=== PATIENT | female | born 1975 | race Caucasian/White ===

== ENCOUNTER 2016-09-26 18:30 | Emergency (ER) | payer SELFPAY ==
[~2016-09-26 18:30] MED LIST: HARD NAILS2.5 MG PO; MULTIPLE VITAMIN PO; PANTOPRAZOLE SO40 MG PO
--- NOTE | 2016-09-26 18:58 | ED CLINICAL REPORT ---
Clinical Report - Physicians/Mid Levels [facility] [address] [place] [address] 09/26/2016 18:29 Patient: TELMA CALL [facility]#: [id number] Time Seen: 18:43 Apr 2016. Arrived- By private vehicle. Historian- patient. HISTORY OF PRESENT ILLNESS Chief Complaint: (puncture wound from nail). This started just prior to arrival and is still present. It has been located on the right lower extremity (face). No rash to face. (Stepped on a nail just prior to arrival R. foot. Eleonora/ old nail through sandal. Mild pain to movement Non insulin dependent diabetic. No h/o mrsa. Incident occured just prior to arrival.). REVIEW OF SYSTEMS No fever, chills, difficulty breathing, lump in throat or abdominal pain. No diarrhea. All systems otherwise negative, except as recorded above. PAST HISTORY Tetanus immunization status is unknown. Problems: Laryngitis. Diabetes Mellitus. Cardiovascular Risk Factors. Hypertension. Pyelonephritis. UTI - Urinary Tract Infection. Obesity. Diarrhea. Abdominal Pain. Vomiting. Pharyngitis. URI. Bronchitis. Neck Pain. Tetanus Status. Fall. Sprain. Contusion. LNMP - Last Normal Menstrual Period. Diabetes Mellitus [RuleOut]. Additional Surgeries: Oophorectomy. Tubal Ligation. Medications: Vitamins. Allergies: Cipro. Percocet: "itch everywhere". SOCIAL HISTORY Former smoker. Alcohol use. No drug use. ADDITIONAL NOTES The nursing notes have been reviewed. PHYSICAL EXAM Appearance: Alert. CVS: Normal heart rate and rhythm. Heart sounds normal. Respiratory: No respiratory distress. Skin: Rash present on the right lower extremity (plantar mid foot wound, no fb, no surrounding erythema). LABS, X-RAYS, AND EKG Note - Tests: (xr foot: r. neg for fx or any acute abnormalities). PROGRESS AND PROCEDURES Course of Care: Patient took her on glucose here via her glucometer 140. No signs of immediate infection, given diabetic and plantar wound from a eleonora nail, will start with antibiotics. X-ray unremarkable for any signs of infectious process. No visible drainage from the area. Patient is stable. Patient/family counseled. Disposition: Discharged. Condition: good. CLINICAL IMPRESSION Puncture wound to the right foot. No puncture wound with foreign body present. INSTRUCTIONS Protect wound and keep wound area clean. Apply bacitracin twice daily. Warnings: TETANUS: You were given a tetanus shot during your visit. Make a note for future reference. Prescription Medications: Keflex 500 mg: take 1 capsule orally every 6 hours for 7 days. No refills. Substitution is permissible. Follow-up: Follow up with your doctor Saturday as needed and for wound check. Understanding of the discharge instructions verbalized by patient. (Electronically signed by Viki Yang P.A.-C 09/26/2016 19:02)
--- NOTE | 2016-09-26 18:58 | ED NURSING NOTES ---
Clinical Report - Nurses [facility] [address] [place] [address] 09/26/2016 18:29 Patient: TELMA CALL TRIAGE Triage time 1839 PM. Acuity: LEVEL 4. Chief Complaint: INJURY TO RIGHT ANKLE and FOOT. Alert. No acute distress. --18:45 Palak Rodríguez R.N. 18:37 09/26/16. BP: 157/83 taken on the left arm, via an automated monitor, while sitting. HR: 93. RR: 16. O2 saturation: 97% on room air. Temp: 98.1 F. Pain level now: 0/10. --18:45 Palak Rodríguez R.N. Weight: 115.6 kg stated. Height/Length: 63 inches Per Patient. BMI: 45.2. --18:38 Palak Rodríguez R.N. Medications Vitamins. --18:42 Palak Rodríguez R.N. Allergies Cipro. Percocet: "itch everywhere". --18:42 Palak Rodríguez R.N. Keflex. --19:05 Palak Rodríguez R.N. Medication/allergy information source: the patient. --18:45 Palak Rodríguez R.N. History Arrived by private vehicle. Historian: patient. Accompanied by family. Primary physician ([facility]). ( Pt states was walking in her barn when she stepped on a nail on her right foot, states the nail was "eleonora and old". Here for evaluation). Occurred at home. She has had trouble walking. No numbness, tingling, weakness, neck pain or back pain. Treatment SCRIPT SUPERVISOR: None. PAST MEDICAL HX: Tetanus status: unknown. Last normal menstrual period- August. Sexual history - sexually active. No contraception. SOCIAL HX: Former smoker, end date 2009. Occasional alcohol use; consumes beer occasionally. No drug use. No infectious disease exposure. ABUSE ASSESSMENT: No report of abuse. SELF HARM ASSESSMENT: A self harm assessment was performed. The patient answered "no" to the question "Do you have thoughts of harming or killing yourself?" and "Have you recently had thoughts about harming or killing others?". FALL RISK ASSESSMENT: Fall risk assessment completed. No fall risk identified. NUTRITIONAL RISK ASSESSMENT: The nutritional risk assessment revealed no deficiencies. FUNCTIONAL ASSESSMENT: Functional assessment: no impairments noted. LEARNING NEEDS ASSESSMENT: The learning needs assessment revealed no barriers. SKIN INTEGRITY ASSESSMENT: Skin integrity risk assessment completed. No skin integrity risk identified. --18:45 Palak Rodríguez R.N. PROBLEMS: Laryngitis. Diabetes Mellitus. Cardiovascular Risk Factors. Hypertension. Pyelonephritis. UTI - Urinary Tract Infection. Obesity. Abdominal Pain. Pharyngitis. URI. Bronchitis. Fall. Sprain. --18:43 Palak Rodríguez R.N. ADDITIONAL SURGERIES: Oophorectomy. Tubal Ligation. --18:43 Palak Rodríguez R.N. Interventions ID band on patient. --18:45 Palak Rodríguez R.N. PHYSICAL ASSESSMENT Ambulatory to room. GENERAL / NEURO / PSYCH: Oriented X 4. Alert. EXTREMITIES: Capillary refill is less than 2 seconds in the extremities. Extremity pulses are within normal limits. Extremities exhibit normal ROM. Right foot: tenderness and single puncture wound of the mid foot. No laceration or deformity. SKIN: Skin is warm and dry. Skin not intact. --18:47 Palak Rodríguez R.N. NURSING PROGRESS NOTES 19:09 09/26/2016 TDAP IM 0.5 mL given. (Lot#: [id number], expiration date: 03/27/2018, Auto Radiator Specialist: sanofi pasteur). Given in the right deltoid. Allergies verified and confirmed 5 rights. Vaccine information statement provided to the patient. --19:09 Palak Rodríguez R.N. 19:12 09/26/2016 Tetanus Immune Globulin IM 250 unit given. (Lot#: [id number], expiration date: 08/19/2017, Auto Radiator Specialist: sanofi pasteur). Given in the left deltoid. Allergies verified and confirmed 5 rights. Vaccine information statement provided to the patient. --19:12 Palak Rodríguez R.N. ( 1915: wound irrigation with Sodium Chloride, applied bacitracin, after dressing with bandaid). --19:22 Peri Lara 19:19 09/26/2016 Keflex (Cephalexin) PO Tablets 500 mg given. Allergies verified and confirmed 5 rights. --19:35 Palak Rodríguez R.N. <<STRICKEN ENTRY-- 19:24 09/26/2016 Zofran ODT (Ondansetron) PO Tablets 4 mg given. Allergies verified and confirmed 5 rights. --19:34 Palak Rodríguez R.N. --END STRIKE>> Other. --19:34 Palak Rodríguez R.N. <<STRICKEN ENTRY-- 19:33 09/26/2016 Keflex (Cephalexin) PO Tablets 500 mg given. Allergies verified and confirmed 5 rights. --19:34 Palak Rodríguez R.N. --END STRIKE>> Other. --19:35 Palak Rodríguez R.N. 19:34 09/26/2016 Zofran ODT (Ondansetron) PO Tablets 4 mg given. Allergies verified and confirmed 5 rights. --19:34 Palak Rodríguez R.N. 19:34 09/26/2016 Benadryl (DiphenhydrAMINE HCl) PO Capsules 25 mg given. Allergies verified, confirmed 5 rights and sedative warning given to the patient. --19:34 Palak Rodríguez R.N. DISPOSITION / DISCHARGE Departure time: 1938 PM. Condition at departure: stable. The goals identified in the patient's plan of care were met. No learning barriers present. Discharge instructions provided and reviewed with the patient. Reviewed warnings. Reviewed medication(s) side effects, precautions, dosing and course information. Prescription(s) given to the patient. Reviewed wound care instructions. Activity restrictions (minimal use of injured extremity) reviewed. Patient verbalized understanding. Written instructions provided in Kiswahili. No referrals given to the patient. The patient was discharged by the physician payroll and benefits assistant. She was discharged home and accompanied by spouse. She left the Emergency Department ambulatory and via private vehicle. Spouse driving. FALL RISK ASSESSMENT: Fall risk assessment completed. No fall risk identified. --19:38 Palak Rodríguez R.N. 19:25 09/26/16. BP: 147/54 (regular adult cuff) taken on the left arm, via an automated monitor, while sitting. HR: 78. RR: 14. O2 saturation: 100%. Temp: 98.3 F (oral). Pain level now: 07/20. --19:38 Palak Rodríguez R.N. Locked/Released at 09/26/2016 19:38 by Palak Rodríguez R.N.
--- NOTE | 2016-09-26 18:58 | ED NURSING NOTES ---
Clinical Report - Nurses [facility] [address] [place] [address] 09/26/2016 18:29 Patient: TELMA CALL TRIAGE Triage time 1839 PM. Acuity: LEVEL 4. Chief Complaint: INJURY TO RIGHT ANKLE and FOOT. Alert. No acute distress. --18:45 Palak Rodríguez R.N. 18:37 09/26/16. BP: 157/83 taken on the left arm, via an automated monitor, while sitting. HR: 93. RR: 16. O2 saturation: 97% on room air. Temp: 98.1 F. Pain level now: 0/10. --18:45 Palak Rodríguez R.N. Weight: 115.6 kg stated. Height/Length: 63 inches Per Patient. BMI: 45.2. --18:38 Palak Rodríguez R.N. Medications Vitamins. --18:42 Palak Rodríguez R.N. Allergies Cipro. Percocet: "itch everywhere". --18:42 Palak Rodríguez R.N. Keflex. --19:05 Palak Rodríguez R.N. Medication/allergy information source: the patient. --18:45 Palak Rodríguez R.N. History Arrived by private vehicle. Historian: patient. Accompanied by family. Primary physician ([facility]). ( Pt states was walking in her barn when she stepped on a nail on her right foot, states the nail was "eleonora and old". Here for evaluation). Occurred at home. She has had trouble walking. No numbness, tingling, weakness, neck pain or back pain. Treatment PRODUCT SUPPORT TECHNICIAN: None. PAST MEDICAL HX: Tetanus status: unknown. Last normal menstrual period- August. Sexual history - sexually active. No contraception. SOCIAL HX: Former smoker, end date 2009. Occasional alcohol use; consumes beer occasionally. No drug use. No infectious disease exposure. ABUSE ASSESSMENT: No report of abuse. SELF HARM ASSESSMENT: A self harm assessment was performed. The patient answered "no" to the question "Do you have thoughts of harming or killing yourself?" and "Have you recently had thoughts about harming or killing others?". FALL RISK ASSESSMENT: Fall risk assessment completed. No fall risk identified. NUTRITIONAL RISK ASSESSMENT: The nutritional risk assessment revealed no deficiencies. FUNCTIONAL ASSESSMENT: Functional assessment: no impairments noted. LEARNING NEEDS ASSESSMENT: The learning needs assessment revealed no barriers. SKIN INTEGRITY ASSESSMENT: Skin integrity risk assessment completed. No skin integrity risk identified. --18:45 Palak Rodríguez R.N. PROBLEMS: Laryngitis. Diabetes Mellitus. Cardiovascular Risk Factors. Hypertension. Pyelonephritis. UTI - Urinary Tract Infection. Obesity. Abdominal Pain. Pharyngitis. URI. Bronchitis. Fall. Sprain. --18:43 Palak Rodríguez R.N. ADDITIONAL SURGERIES: Oophorectomy. Tubal Ligation. --18:43 Palak Rodríguez R.N. Interventions ID band on patient. --18:45 Palak Rodríguez R.N. PHYSICAL ASSESSMENT Ambulatory to room. GENERAL / NEURO / PSYCH: Oriented X 4. Alert. EXTREMITIES: Capillary refill is less than 2 seconds in the extremities. Extremity pulses are within normal limits. Extremities exhibit normal ROM. Right foot: tenderness and single puncture wound of the mid foot. No laceration or deformity. SKIN: Skin is warm and dry. Skin not intact. --18:47 Palak Rodríguez R.N. NURSING PROGRESS NOTES 19:09 09/26/2016 TDAP IM 0.5 mL given. (Lot#: [id number], expiration date: 03/27/2018, Sealer Dry Cell: sanofi pasteur). Given in the right deltoid. Allergies verified and confirmed 5 rights. Vaccine information statement provided to the patient. --19:09 Palak Rodríguez R.N. 19:12 09/26/2016 Tetanus Immune Globulin IM 250 unit given. (Lot#: [id number], expiration date: 08/19/2017, Sealer Dry Cell: sanofi pasteur). Given in the left deltoid. Allergies verified and confirmed 5 rights. Vaccine information statement provided to the patient. --19:12 Palak Rodríguez R.N. ( 1915: wound irrigation with Sodium Chloride, applied bacitracin, after dressing with bandaid). --19:22 Peri Lara 19:19 09/26/2016 Keflex (Cephalexin) PO Tablets 500 mg given. Allergies verified and confirmed 5 rights. --19:35 Palak Rodríguez R.N. <<STRICKEN ENTRY-- 19:24 09/26/2016 Zofran ODT (Ondansetron) PO Tablets 4 mg given. Allergies verified and confirmed 5 rights. --19:34 Palak Rodríguez R.N. --END STRIKE>> Other. --19:34 Palak Rodríguez R.N. <<STRICKEN ENTRY-- 19:33 09/26/2016 Keflex (Cephalexin) PO Tablets 500 mg given. Allergies verified and confirmed 5 rights. --19:34 Palak Rodríguez R.N. --END STRIKE>> Other. --19:35 Palak Rodríguez R.N. 19:34 09/26/2016 Zofran ODT (Ondansetron) PO Tablets 4 mg given. Allergies verified and confirmed 5 rights. --19:34 Palak Rodríguez R.N. 19:34 09/26/2016 Benadryl (DiphenhydrAMINE HCl) PO Capsules 25 mg given. Allergies verified, confirmed 5 rights and sedative warning given to the patient. --19:34 Palak Rodríguez R.N. DISPOSITION / DISCHARGE Departure time: 1938 PM. Condition at departure: stable. The goals identified in the patient's plan of care were met. No learning barriers present. Discharge instructions provided and reviewed with the patient. Reviewed warnings. Reviewed medication(s) side effects, precautions, dosing and course information. Prescription(s) given to the patient. Reviewed wound care instructions. Activity restrictions (minimal use of injured extremity) reviewed. Patient verbalized understanding. Written instructions provided in Albanian. No referrals given to the patient. The patient was discharged by the physician surveyor instrument assistant. She was discharged home and accompanied by spouse. She left the Emergency Department ambulatory and via private vehicle. Spouse driving. FALL RISK ASSESSMENT: Fall risk assessment completed. No fall risk identified. --19:38 Palak Rodríguez R.N. 19:25 09/26/16. BP: 147/54 (regular adult cuff) taken on the left arm, via an automated monitor, while sitting. HR: 78. RR: 14. O2 saturation: 100%. Temp: 98.3 F (oral). Pain level now: 07/20. --19:38 Palak Rodríguez R.N. Locked/Released at 09/26/2016 19:38 by Palak Rodríguez R.N.
--- NOTE | 2016-09-26 18:58 | ED CLINICAL REPORT ---
Clinical Report - Physicians/Mid Levels [facility] [address] [place] [address] 09/26/2016 18:29 [id number] Time Seen: 18:43 Apr 2016. Arrived- By private vehicle. Historian- patient. HISTORY OF PRESENT ILLNESS Chief Complaint: (puncture wound from nail). This started just prior to arrival and is still present. It has been located on the right lower extremity (face). No rash to face. (Stepped on a nail just prior to arrival R. foot. Eleonora/ old nail through sandal. Mild pain to movement Non insulin dependent diabetic. No h/o mrsa. Incident occured just prior to arrival.). REVIEW OF SYSTEMS No fever, chills, difficulty breathing, lump in throat or abdominal pain. No diarrhea. All systems otherwise negative, except as recorded above. PAST HISTORY Tetanus immunization status is unknown. Problems: Laryngitis. Diabetes Mellitus. Cardiovascular Risk Factors. Hypertension. Pyelonephritis. UTI - Urinary Tract Infection. Obesity. Diarrhea. Abdominal Pain. Vomiting. Pharyngitis. URI. Bronchitis. Neck Pain. Tetanus Status. Fall. Sprain. Contusion. LNMP - Last Normal Menstrual Period. Diabetes Mellitus [RuleOut]. Additional Surgeries: Oophorectomy. Tubal Ligation. Medications: Vitamins. Allergies: Cipro. Percocet: "itch everywhere". SOCIAL HISTORY Former smoker. Alcohol use. No drug use. ADDITIONAL NOTES The nursing notes have been reviewed. PHYSICAL EXAM Appearance: Alert. CVS: Normal heart rate and rhythm. Heart sounds normal. Respiratory: No respiratory distress. Skin: Rash present on the right lower extremity (plantar mid foot wound, no fb, no surrounding erythema). LABS, X-RAYS, AND EKG Note - Tests: (xr foot: r. neg for fx or any acute abnormalities). PROGRESS AND PROCEDURES Course of Care: Patient took her on glucose here via her glucometer 140. No signs of immediate infection, given diabetic and plantar wound from a eleonora nail, will start with antibiotics. X-ray unremarkable for any signs of infectious process. No visible drainage from the area. Patient is stable. Patient/family counseled. Disposition: Discharged. Condition: good. CLINICAL IMPRESSION Puncture wound to the right foot. No puncture wound with foreign body present. INSTRUCTIONS Protect wound and keep wound area clean. Apply bacitracin twice daily. Warnings: TETANUS: You were given a tetanus shot during your visit. Make a note for future reference. Prescription Medications: Keflex 500 mg: take 1 capsule orally every 6 hours for 7 days. No refills. Substitution is permissible. Follow-up: Follow up with your doctor Saturday as needed and for wound check. Understanding of the discharge instructions verbalized by patient. (Electronically signed by Viki Yang P.A.-C 09/26/2016 19:02)
--- NOTE | 2016-09-26 18:59 | ED ORDER SUMMARY ---
..... Patient: TELMA CALL OrderSheet [facility] VisitID: [id number] [place] [address] 41y, F Registration Date/Time: 09/26/2016 ORDER SHEET Weight: 115.6 kg (stated) Allergies: Cipro, Percocet: "itch everywhere", Keflex GENERAL ORDERS: Foot 3V Right Urgent (18:36 09/26/2016 EKoroleva P.A.-C) (Ack 18:42 PWeiler ER Tech1) (18:56 MCampbell) Wound Irrigation (irrigate/ bacitracin/ bandaid after xr) (18:36 09/26/2016 EKoroleva P.A.-C) (19:13 EHassan R.N.) MEDICATION ORDERS: Tdap IM 0.5 mL (NOW, per protocol) (18:36 09/26/2016 EKoroleva P.A.-C) (19:09 EHassan R.N.) Tetanus IMmune Globulin IM 250 units (NOW) (18:36 09/26/2016 EKoroleva P.A.-C) (19:12 EHassan R.N.) Keflex PO 500 mg (NOW) (18:36 09/26/2016 EKoroleva P.A.-C) (Cancelled: Other19:10 EKoroleva P.A.-C) Benadryl PO 25 mg (NOW) (19:13 09/26/2016 EKoroleva P.A.-C) (19:34 EHassan R.N.) Zofran ODT PO 4 mg (NOW) (19:14 09/26/2016 EKoroleva P.A.-C) (19:34 EHassan R.N.) Keflex PO 500 mg (NOW) (19:14 09/26/2016 EKoroleva P.A.-C) (19:34 EHassan R.N.) IV FLUIDS: ORDER SHEET NOTES: [Electronically signed by Viki YangAМарина-Augustine (19:02 09/26/2016)] [Electronically signed by Palak Rodríguez R.N. (19:38 09/26/2016)] [Electronically locked/signed by Palak Rodríguez R.N. (:38 09/26/2016)]
--- NOTE | 2016-09-26 18:59 | ED ORDER SUMMARY ---
..... Patient: TELMA CALL OrderSheet [facility] VisitID: [id number] [place] [address] 41y, F Registration Date/Time: 09/26/2016 ORDER SHEET Weight: 115.6 kg (stated) Allergies: Cipro, Percocet: "itch everywhere", Keflex GENERAL ORDERS: Foot 3V Right Urgent (18:36 09/26/2016 EKoroleva P.A.-C) (Ack 18:42 PWeiler ER Tech1) (18:56 MCampbell) Wound Irrigation (irrigate/ bacitracin/ bandaid after xr) (18:36 09/26/2016 EKoroleva P.A.-C) (19:13 EHassan R.N.) MEDICATION ORDERS: Tdap IM 0.5 mL (NOW, per protocol) (18:36 09/26/2016 EKoroleva P.A.-C) (19:09 EHassan R.N.) Tetanus IMmune Globulin IM 250 units (NOW) (18:36 09/26/2016 EKoroleva P.A.-C) (19:12 EHassan R.N.) Keflex PO 500 mg (NOW) (18:36 09/26/2016 EKoroleva P.A.-C) (Cancelled: Other19:10 EKoroleva P.A.-C) Benadryl PO 25 mg (NOW) (19:13 09/26/2016 EKoroleva P.A.-C) (19:34 EHassan R.N.) Zofran ODT PO 4 mg (NOW) (19:14 09/26/2016 EKoroleva P.A.-C) (19:34 EHassan R.N.) Keflex PO 500 mg (NOW) (19:14 09/26/2016 EKoroleva P.A.-C) (19:34 EHassan R.N.) IV FLUIDS: ORDER SHEET NOTES: [Electronically signed by Viki YangAМарина-Augustine (19:02 09/26/2016)] [Electronically signed by Palak Rodríguez R.N. (19:38 09/26/2016)] [Electronically locked/signed by Palak Rodríguez R.N. (:38 09/26/2016)]
--- NOTE | 2016-09-26 19:20 | DIAGNOSTIC IMAGING REPORT ---
PROCEDURE: XR FOOT 3 VIEWS - RIGHT INDICATION: PAIN TECHNIQUE: Three views. COMPARISON: Right foot x-ray 03/26/2014. FINDINGS: No evidence of a radiopaque foreign body. Old avulsion fractures at the base of the second proximal phalanx and lateral aspect of the calcaneus anterior process. Calcaneal spur present. Mild degenerative changes of the tibiotalar joint. IMPRESSION: 1. No evidence of a radiopaque foreign body.
--- NOTE | 2016-09-26 19:39 | ED MAR SUMMARY ---
..... Medication Administration Record [facility] [address] [place] [address] Patient: TELMA CALL Visit ID: [id number] 41y, F Weight: 115.6 kg Height/Length: 63 in BMI: 45.2 ALLERGIES: Cipro, Percocet: "itch everywhere", Keflex Given 19:09/26/2016 Palak Rodríguez R.NМарина Medication Administered: TDAP [IM], Dose: 0.5 mL IM. Medication Ordered: Tdap IM 0.5 mL (NOW, per protocol). Given 09/26/2016 Palak Rodríguez R.N. Medication Administered: TETANUS IMMUNE GLOBULIN [IM], Dose: 250 unit IM. Medication Ordered: Tetanus IMmune Globulin IM 250 units (NOW). Given 09/26/2016 Palak Rodríguez R.NМарина Medication Administered: KEFLEX [PO] (CEPHALEXIN), Dose: 500 mg Tablets PO. Medication Ordered: Keflex PO 500 mg (NOW). Given 09/26/2016 Palak Rodríguez R.NМарина Medication Administered: BENADRYL [PO] (DIPHENHYDRAMINE HCL), Dose: 25 mg Capsules PO. Medication Ordered: Benadryl PO 25 mg (NOW). Given 09/26/2016 Palak Rodríguez R.N. Medication Administered: ZOFRAN ODT [PO] (ONDANSETRON), Dose: 4 mg Tablets PO. Medication Ordered: Zofran ODT PO 4 mg (NOW).
--- NOTE | 2016-09-26 19:39 | ED DISCHARGE INSTRUCTIONS ---
Patient: TELMA CALL General Instructions [facility] VisitID: [id number] [place] [address] 41y, F Registration Date/Time: 09/26/2016 Puncture wound to the right foot. No puncture wound with foreign body present. INSTRUCTIONS Protect wound and keep wound area clean. Apply bacitracin twice daily. Warnings: TETANUS: You were given a tetanus shot during your visit. Make a note for future reference. Prescription Medications: Keflex 500 mg: take 1 capsule orally every 6 hours for 7 days. No refills. Substitution is permissible. Follow-up: Follow up with your doctor Saturday as needed and for wound check. Understanding of the discharge instructions verbalized by patient. ADDITIONAL INFORMATION Puncture Wound (General) A puncture wound is a hole through the skin. Bacteria, dirt and debris can be drawn into this wound, increasing the risk of infection. However, antibiotics are usually not prescribed for this injury unless signs of infection are already present. Therefore, it is important to observe the wound closely for the signs of infection listed below. Home Care: If your wound is on an arm, hand, leg, or foot, keep that part raised during the first 48 hours to reduce swelling and pain. Keep the wound clean and dry. If a bandage was applied and it becomes wet or dirty, replace it. Otherwise, leave it in place for the next 24 hours. You may use acetaminophen (Tylenol) or ibuprofen (Motrin, Advil) to control pain, unless another medicine was prescribed. [NOTE: If you have chronic liver or kidney disease or ever had a stomach ulcer or GI bleeding, talk with your doctor before using these medicines.] You may shower as usual. However, do not soak the area in water (no baths or swimming) during the first 48 hours. Follow Up: Most puncture wounds heal within 10 days. However, an infection may sometimes occur despite proper treatment. If small particles were drawn into the puncture wound (such as fragments of cloth, rubber, wood or dirt), an infection may occur. These fragments are very hard to find during the first exam since it is not possible to get a good look inside a puncture wound and they do not show on an X-ray. Antibiotics and a minor surgical procedure to find and remove the foreign object will be needed if this happens. Therefore, check the wound daily for the warning signs listed below. Get Prompt Medical Attention if any of the following occur: SIGNS OF INFECTION: Increasing pain in the wound Redness, swelling, pus or red lines coming from the wound Fever of 100.4F (38C) or higher, or as directed by your healthcare provider Puncture Wound: Foot A puncture is a hole through the skin. Bacteria, dirt, and debris can be drawn into this wound, increasing the risk of infection. Antibiotics are usually not prescribed for this injury unless signs of infection are already present. Therefore, it is important to observe the wound closely for the signs of infection listed below. If you were wearing a rubber-soled shoe when the sharp object punctured your foot, there is a chance that bacteria (called "pseudomonas") from the sole of the shoe may be dragged into the wound and infect the skin, tendon or bone. This infection may start as late as 2-3 weeks after the injury. It is more serious and harder to treat than the common staph and strep skin infections, so follow the advice below. Home Care: Keep the foot raised during the first 24-48 hours to reduce swelling and pain. DO NOT BEAR WEIGHT on the injured foot if it hurts to do so. You may use acetaminophen (Tylenol) or ibuprofen (Motrin, Advil) to control pain, unless another medicine was prescribed. [NOTE: If you have chronic liver or kidney disease or ever had a stomach ulcer or GI bleeding, talk with your doctor before using these medicines.] You may shower as usual, but do not soak the wound in water (no baths or swimming) until the wound seals and there is no more drainage or bleeding. Keep the wound clean and dry. If a bandage was applied and it becomes wet or dirty, replace it. Otherwise, keep the wound covered until there is no more drainage or bleeding. Follow Up: Most puncture wounds heal within 10 days. However, an infection may sometimes occur despite proper treatment. If small particles were drawn into the puncture wound (such as fragments of cloth, rubber, wood or dirt), an infection may occur. These fragments are very hard to find during the first exam since it is not possible to get a good look inside a puncture wound and they do not show on an X-ray. Antibiotics and a minor surgical procedure to find and remove the foreign object will be needed if this happens. Over the next 2-3 weeks, check the wound daily for the warning signs listed below. If you are still having swelling or pain in the foot after two weeks, you should contact your doctor or return to this facility for an x-ray to look for an infection in the bone. [NOTE: Any X-rays taken will be reviewed by a radiologist. You will be notified of any new findings that may affect your care.] Get Prompt Medical Attention if any of the following occur: Increasing pain Foot becomes cold, blue, numb, or tingly Fever of 100.4F (38C) or higher, or as directed by your healthcare provider Redness, warmth, swelling or drainage from the wound Pain or swelling that lasts for two weeks Diphtheria Toxoid Adsorbed, Pertussis Vaccine, Acellular (Adsorbed), Tetanus Toxoid, Adsorbed Suspension for injection What is this medicine? DIPHTHERIA and TETANUS TOXOIDS; PERTUSSIS VACCINE (dif THEER ee uh and TET n us TOK soids; per TUS iss vak SEEN) is used to prevent diphtheria, tetanus, and pertussis infections. How should I use this medicine? This vaccine is for injection into a muscle. It is given by a health day care attendant. A copy of Vaccine Information Statements will be given before each vaccination. Read this sheet carefully each time. The sheet may change frequently. Talk to your industrial manufacturing technician regarding the use of this vaccine in children. While the DTP vaccine may be given to children ages 6 weeks to 7 years and the Tdap vaccine may be given to children at least 10 years old, precautions do apply. What side effects may I notice from receiving this medicine? Side effects that you should report to your doctor or health day care attendant as soon as possible: allergic reactions like skin rash, itching or hives, swelling of the face, lips, or tongue breathing problems fever of 103 degrees F or more flu-like symptoms inconsolable crying infection pain, tingling, numbness in the hands or feet seizures swelling of arm or leg that was injected unusually weak or tired Side effects that usually do not require immediate medical attention (report these side effects to your doctor or health day care attendant if they continue or are bothersome): fussy, irritable loss of appetite fever of 102 degrees F or less pain, tenderness, redness, swelling, or a 'knot' at site where injected vomiting What may interact with this medicine? immune globulin medicines that suppress your immune function like adalimumab, anakinra, infliximab medicines to treat cancer medicines that treat or prevent blood clots like warfarin, enoxaparin, and dalteparin steroid medicines like prednisone or cortisone What if I miss a dose? It is important not to miss your dose. Call your doctor or health day care attendant if you are unable to keep an appointment. Where should I keep my medicine? This drug is given in a hospital or clinic and will not be stored at home. What should I tell my health care provider before I take this medicine? They need to know if you have any of these conditions: blood disorders like hemophilia fever or infection immune system problems neurologic disease seizures an unusual or allergic reaction to vaccines, thimerosal, latex, other medicines, foods, dyes, or preservatives or trying to get breast-feeding What should I watch for while using this medicine? See your health care provider for all shots of this vaccine as directed. To have protection from infection, you must have 3 shots of this vaccine plus boosters as needed. Tell your doctor right away if you have any serious or unusual side effects after getting this vaccine. You have been given the following additional information: Puncture Wound, General Puncture Wound, Foot Diphtheria Toxoid Adsorbed, Pertussis Vaccine, Acellular (Adsorbed), Tetanus Toxoid, Adsorbed Suspension for injection (Electronically signed by Viki Yang P.A.-C 09/26/2016 19:02)
--- NOTE | 2016-09-26 19:39 | ED DISCHARGE INSTRUCTIONS ---
Patient: TELMA CALL General Instructions [facility] VisitID: [id number] [place] [address] 41y, F Registration Date/Time: 09/26/2016 Puncture wound to the right foot. No puncture wound with foreign body present. INSTRUCTIONS Protect wound and keep wound area clean. Apply bacitracin twice daily. Warnings: TETANUS: You were given a tetanus shot during your visit. Make a note for future reference. Prescription Medications: Keflex 500 mg: take 1 capsule orally every 6 hours for 7 days. No refills. Substitution is permissible. Follow-up: Follow up with your doctor Saturday as needed and for wound check. Understanding of the discharge instructions verbalized by patient. ADDITIONAL INFORMATION Puncture Wound (General) A puncture wound is a hole through the skin. Bacteria, dirt and debris can be drawn into this wound, increasing the risk of infection. However, antibiotics are usually not prescribed for this injury unless signs of infection are already present. Therefore, it is important to observe the wound closely for the signs of infection listed below. Home Care: If your wound is on an arm, hand, leg, or foot, keep that part raised during the first 48 hours to reduce swelling and pain. Keep the wound clean and dry. If a bandage was applied and it becomes wet or dirty, replace it. Otherwise, leave it in place for the next 24 hours. You may use acetaminophen (Tylenol) or ibuprofen (Motrin, Advil) to control pain, unless another medicine was prescribed. [NOTE: If you have chronic liver or kidney disease or ever had a stomach ulcer or GI bleeding, talk with your doctor before using these medicines.] You may shower as usual. However, do not soak the area in water (no baths or swimming) during the first 48 hours. Follow Up: Most puncture wounds heal within 10 days. However, an infection may sometimes occur despite proper treatment. If small particles were drawn into the puncture wound (such as fragments of cloth, rubber, wood or dirt), an infection may occur. These fragments are very hard to find during the first exam since it is not possible to get a good look inside a puncture wound and they do not show on an X-ray. Antibiotics and a minor surgical procedure to find and remove the foreign object will be needed if this happens. Therefore, check the wound daily for the warning signs listed below. Get Prompt Medical Attention if any of the following occur: SIGNS OF INFECTION: Increasing pain in the wound Redness, swelling, pus or red lines coming from the wound Fever of 100.4F (38C) or higher, or as directed by your healthcare provider Puncture Wound: Foot A puncture is a hole through the skin. Bacteria, dirt, and debris can be drawn into this wound, increasing the risk of infection. Antibiotics are usually not prescribed for this injury unless signs of infection are already present. Therefore, it is important to observe the wound closely for the signs of infection listed below. If you were wearing a rubber-soled shoe when the sharp object punctured your foot, there is a chance that bacteria (called "pseudomonas") from the sole of the shoe may be dragged into the wound and infect the skin, tendon or bone. This infection may start as late as 2-3 weeks after the injury. It is more serious and harder to treat than the common staph and strep skin infections, so follow the advice below. Home Care: Keep the foot raised during the first 24-48 hours to reduce swelling and pain. DO NOT BEAR WEIGHT on the injured foot if it hurts to do so. You may use acetaminophen (Tylenol) or ibuprofen (Motrin, Advil) to control pain, unless another medicine was prescribed. [NOTE: If you have chronic liver or kidney disease or ever had a stomach ulcer or GI bleeding, talk with your doctor before using these medicines.] You may shower as usual, but do not soak the wound in water (no baths or swimming) until the wound seals and there is no more drainage or bleeding. Keep the wound clean and dry. If a bandage was applied and it becomes wet or dirty, replace it. Otherwise, keep the wound covered until there is no more drainage or bleeding. Follow Up: Most puncture wounds heal within 10 days. However, an infection may sometimes occur despite proper treatment. If small particles were drawn into the puncture wound (such as fragments of cloth, rubber, wood or dirt), an infection may occur. These fragments are very hard to find during the first exam since it is not possible to get a good look inside a puncture wound and they do not show on an X-ray. Antibiotics and a minor surgical procedure to find and remove the foreign object will be needed if this happens. Over the next 2-3 weeks, check the wound daily for the warning signs listed below. If you are still having swelling or pain in the foot after two weeks, you should contact your doctor or return to this facility for an x-ray to look for an infection in the bone. [NOTE: Any X-rays taken will be reviewed by a radiologist. You will be notified of any new findings that may affect your care.] Get Prompt Medical Attention if any of the following occur: Increasing pain Foot becomes cold, blue, numb, or tingly Fever of 100.4F (38C) or higher, or as directed by your healthcare provider Redness, warmth, swelling or drainage from the wound Pain or swelling that lasts for two weeks Diphtheria Toxoid Adsorbed, Pertussis Vaccine, Acellular (Adsorbed), Tetanus Toxoid, Adsorbed Suspension for injection What is this medicine? DIPHTHERIA and TETANUS TOXOIDS; PERTUSSIS VACCINE (dif THEER ee uh and TET n us TOK soids; per TUS iss vak SEEN) is used to prevent diphtheria, tetanus, and pertussis infections. How should I use this medicine? This vaccine is for injection into a muscle. It is given by a health healthcare sales representative. A copy of Vaccine Information Statements will be given before each vaccination. Read this sheet carefully each time. The sheet may change frequently. Talk to your top stitcher regarding the use of this vaccine in children. While the DTP vaccine may be given to children ages 6 weeks to 7 years and the Tdap vaccine may be given to children at least 10 years old, precautions do apply. What side effects may I notice from receiving this medicine? Side effects that you should report to your doctor or health healthcare sales representative as soon as possible: allergic reactions like skin rash, itching or hives, swelling of the face, lips, or tongue breathing problems fever of 103 degrees F or more flu-like symptoms inconsolable crying infection pain, tingling, numbness in the hands or feet seizures swelling of arm or leg that was injected unusually weak or tired Side effects that usually do not require immediate medical attention (report these side effects to your doctor or health healthcare sales representative if they continue or are bothersome): fussy, irritable loss of appetite fever of 102 degrees F or less pain, tenderness, redness, swelling, or a 'knot' at site where injected vomiting What may interact with this medicine? immune globulin medicines that suppress your immune function like adalimumab, anakinra, infliximab medicines to treat cancer medicines that treat or prevent blood clots like warfarin, enoxaparin, and dalteparin steroid medicines like prednisone or cortisone What if I miss a dose? It is important not to miss your dose. Call your doctor or health healthcare sales representative if you are unable to keep an appointment. Where should I keep my medicine? This drug is given in a hospital or clinic and will not be stored at home. What should I tell my health care provider before I take this medicine? They need to know if you have any of these conditions: blood disorders like hemophilia fever or infection immune system problems neurologic disease seizures an unusual or allergic reaction to vaccines, thimerosal, latex, other medicines, foods, dyes, or preservatives or trying to get breast-feeding What should I watch for while using this medicine? See your health care provider for all shots of this vaccine as directed. To have protection from infection, you must have 3 shots of this vaccine plus boosters as needed. Tell your doctor right away if you have any serious or unusual side effects after getting this vaccine. You have been given the following additional information: Puncture Wound, General Puncture Wound, Foot Diphtheria Toxoid Adsorbed, Pertussis Vaccine, Acellular (Adsorbed), Tetanus Toxoid, Adsorbed Suspension for injection (Electronically signed by Viki Yang P.A.-C 09/26/2016 19:02)
--- NOTE | 2016-09-26 19:39 | ED MAR SUMMARY ---
..... Medication Administration Record Merged With [facility] [address] [place] [address] Patient: TELMA CALL Visit ID: [id number] 41y, F Weight: 115.6 kg Height/Length: 63 in BMI: 45.2 ALLERGIES: Cipro, Percocet: "itch everywhere", Keflex Given 19:09/26/2016 Palak Rodríguez R.NМарина Medication Administered: TDAP [IM], Dose: 0.5 mL IM. Medication Ordered: Tdap IM 0.5 mL (NOW, per protocol). Given 09/26/2016 Palak Rodríguez R.N. Medication Administered: TETANUS IMMUNE GLOBULIN [IM], Dose: 250 unit IM. Medication Ordered: Tetanus IMmune Globulin IM 250 units (NOW). Given 09/26/2016 Palak Rodríguez R.NМарина Medication Administered: KEFLEX [PO] (CEPHALEXIN), Dose: 500 mg Tablets PO. Medication Ordered: Keflex PO 500 mg (NOW). Given 09/26/2016 Palak Rodríguez R.NМарина Medication Administered: BENADRYL [PO] (DIPHENHYDRAMINE HCL), Dose: 25 mg Capsules PO. Medication Ordered: Benadryl PO 25 mg (NOW). Given 09/26/2016 Palak Rodríguez R.N. Medication Administered: ZOFRAN ODT [PO] (ONDANSETRON), Dose: 4 mg Tablets PO. Medication Ordered: Zofran ODT PO 4 mg (NOW).
--- NOTE | 2016-09-26 19:39 | ED MED RECONCILIATION SUMMARY ---
Patient: TELMA CALL Medication Reconciliation Report [facility] VisitID: [id number] [place] [address] 41y, F Registration Date/Time: 09/26/2016 Weight: 115.6 kg Height/Length: 63 in. BMI: 45.2 ALLERGIES: Cipro, Keflex, Percocet: "itch everywhere" The patient's Home Medications are listed below: THE FOLLOWING MEDICATIONS NEED TO BE RECONCILED: Vitamins The source(s) of the original Home Medication information: patient The following Medications were given to the patient in the Emergency Department: TDAP [IM] IM 0.5 mL, administered: 09/26/2016 7:09:00 PM Tetanus Immune Globulin [IM] IM 250 unit, administered: 09/26/2016 7:12:00 PM Keflex [PO] PO 500 mg, administered: 09/26/2016 7:19:00 PM Zofran ODT [PO] PO 4 mg, administered: 09/26/2016 7:34:00 PM Benadryl [PO] PO 25 mg, administered: 09/26/2016 7:34:00 PM The following Medications were prescribed to the patient: Keflex 500 mg: take 1 capsule orally every 6 hours for 7 days. No refills. Substitution is permissible. -- Viki Yang P.A.-C
--- NOTE | 2016-09-26 19:39 | ED MED RECONCILIATION SUMMARY ---
Patient: TELMA CALL Medication Reconciliation Report [facility] VisitID: [id number] Tianna [place] [address] 41y, F Registration Date/Time: 09/26/2016 Weight: 115.6 kg Height/Length: 63 in. BMI: 45.2 ALLERGIES: Cipro, Keflex, Percocet: "itch everywhere" The patient's Home Medications are listed below: THE FOLLOWING MEDICATIONS NEED TO BE RECONCILED: Vitamins The source(s) of the original Home Medication information: patient The following Medications were given to the patient in the Emergency Department: TDAP [IM] IM 0.5 mL, administered: 09/26/2016 7:09:00 PM Tetanus Immune Globulin [IM] IM 250 unit, administered: 09/26/2016 7:12:00 PM Keflex [PO] PO 500 mg, administered: 09/26/2016 7:19:00 PM Zofran ODT [PO] PO 4 mg, administered: 09/26/2016 7:34:00 PM Benadryl [PO] PO 25 mg, administered: 09/26/2016 7:34:00 PM The following Medications were prescribed to the patient: Keflex 500 mg: take 1 capsule orally every 6 hours for 7 days. No refills. Substitution is permissible. -- Viki Yang P.A.-C
== END 2016-09-26 19:38 | disposition home or self-care (01) ==
LOC: ED SRH 18:30
DX: S91.331A Puncture wound without foreign body, right foot, initial encounter (principal); W45.0XXA Nail entering through skin, initial encounter; Z23 Encounter for immunization; E11.9 Type 2 diabetes mellitus without complications; I10 Essential (primary) hypertension; Z88.5 Allergy status to narcotic agent; Z88.1 Allergy status to other antibiotic agents